=== PATIENT | female | born 1985 | race Caucasian/White ===

== ENCOUNTER → 2023-11-15 10:57 | Outpatient (REF) | payer OTHER, SELFPAY | LOC: MRI 3T 10:57 | PROVIDERS: ATTENDING PHYSICIAN Internal Medicine; FAMILY PHYSICIAN Family Medicine | DX: K52.9 Noninfective gastroenteritis and colitis, unspecified (principal); R10.9 Unspecified abdominal pain | CPT/HCPCS: 72197; 74183; A9575 ==

== ENCOUNTER → 2024-01-26 06:26 | Day surgery (SDC) | payer OTHER, SELFPAY | LOC: GI 06:26 | PROVIDERS: ATTENDING PHYSICIAN Internal Medicine | DX: K44.9 Diaphragmatic hernia without obstruction or gangrene (principal); R12 Heartburn | CPT/HCPCS: 43239; 88305; 88342 ==

== ENCOUNTER → 2024-12-08 10:54 | Outpatient (REF) | payer OTHER, SELFPAY | LOC: MRI 3T 10:54 | PROVIDERS: ATTENDING PHYSICIAN Physician Assistant | DX: G89.29 Other chronic pain (principal); R51.9 Headache, unspecified; J01.10 Acute frontal sinusitis, unspecified | CPT/HCPCS: 70553; A9575 ==

== ENCOUNTER 2025-05-29 15:39 | Emergency (ER) | payer OTHER, SELFPAY ==
[2025-05-29 16:08] LABS: Hematocrit 37.1 % (37.0-47.0); Hemoglobin 12.4 g/dL (12.0-16.0); Mean Corp Hgb Conc. 33.4 g/dL (33.0-37.0); Mean Corpuscular Volume 82.4 fL (81.0-99.0); Nucleated Red Blood Cells % 0 %; Platelet Count 291 10^3/uL (130-400); Red Cell Dist. Width 13.4 % (11.5-14.5)
[2025-05-29 16:21] LABS: ALT (SGPT) 15 U/L (0-35); AST (SGOT) 18 U/L (14-36); Albumin 4.6 g/dl (3.5-5.0); Alkaline Phosphatase 44 U/L (38-126); Blood Urea Nitrogen 14 mg/dl (7-17); Calcium 9.5 mg/dl (8.4-10.2); Carbon Dioxide 26 mmol/L (22-30); Chloride 106 mmol/L (98-107); Glucose 119 mg/dl (70-99); HCG, Serum Qualitative Screen Negative; Potassium 4.6 mmol/L (3.5-5.1); Sodium 139 mmol/L (135-145); Total Protein 7.8 g/dl (6.3-8.2); eGFR > 60.00
[2025-05-29 16:22] LABS: Urine Character Clear (Clear)
--- NOTE | 2025-05-29 18:20 | ED.GENMED ---
History of Present Illness
General
Chief Complaint: Flank Pain
Source: patient
Exam Limitations: none
Time Seen by Provider: 05/29/25 18:10
Nursing documentation reviewed up to this point in time: agreed with
History of Present Illness
History of Present Illness:
39-year-old female with history of abdominal and incisional hernia repair in 2022, 3 C-sections, ovarian cyst removal presents for left lower back pain and some left abdominal pain. She she has been on Wegovy since February. About a month ago she had
some diarrhea associated with taking the Wegovy and that is when her back pain started. She states the pain is always there at a minimal level but it waxes and wanes and gets worse several times during the day with more frequent exacerbations over
over the past couple of weeks. She saw her PCP and was ordered an ultrasound of her kidneys which she has not had done yet. She has had mild intermittent nausea, no vomiting. Denies fever or chills. Has been moving her bowels regularly. Denies
UTI symptoms.
Past History
Past History
ED Past Medical History: None; Negative Asthma, HTN, Hypercholesterolemia or NIDDM
ED Past Surgical History: (X 3), Gynecological (ovarian cyst removed) and Other (hernia repair)
Social History
Tobacco: Non-smoker
Alcohol: Occasional
Personal:
Living: with family
Employment: Employed
Review of Systems
Review of Systems
Allergies reviewed?: Yes
All Other Systems: ROS reviewed and negative except as documented in HPI and ROS
Phy Exam
Physical Exam
Physical Exam:
GENERAL: No acute distress. A&Ox3.
CONSTITUTIONAL: Afebrile.
EYES: clear, conjunctivae normal
ENMT: moist mucus membranes
RESPIRATORY: Regular respirations, nonlabored, lungs clear.
CARDIOVASCULAR: Regular rate and rhythm, no murmurs, no rubs.
GI: Soft, tender to palpate left abdomen, no guarding, normal BS
MUSCULOSKELETAL: Moves with ease. Well perfused.
SKIN: Warm, dry, pink
PSYCH: Normal mood and affect. Well kept, interactive and appropriate
NEUROLOGIC: Awake, alert and oriented. No focal neurological deficits
Course
Orders/Labs/Results
Orders:
Orders
05/29/25 15:46
Test Result ONCE
05/29/25 15:54
Complete Blood Count/With Diff Urgent
Comprehensive Metabolic Panel Urgent
HCG, Serum Qualitative Screen Urgent
Lipase Urgent
Comment: ADDON
Urinalysis Reflex To Culture Urgent
Date Specimen was Collected: 05/29/25
Time Specimen was Collected: 15:46
05/29/25 18:20
Add On- LAB Urgent
Tests Added?: Lipase
05/29/25 18:57
CT Abd/pelvis W Iv Cont Urgent
Comment:
Reason For Exam: L flank and abdominal pain
Abnormal Lab Results
05/29/25
15:54
WBC 11.1 H 10^3/uL
(4.8-10.8)
Absolute Neuts (auto) 7.0 H 10^3/uL
(1.4-6.5)
Absolute Monos (auto) 0.8 H 10^3/uL
(0.1-0.6)
Glucose 119 H mg/dl
(70-99)
05/29/25 15:54
05/29/25 15:54
Vital Signs
Initial and Last Documented VS:
Initial Vital Signs
Temp Pulse Resp Pulse Ox
98.5 F 104 17 95
05/29/25 15:44 05/29/25 15:44 05/29/25 15:44 05/29/25 15:44
Last Documented Vital Signs
Temp Pulse Resp BP Pulse Ox
98.5 F 72 17 118/73 98
05/29/25 15:44 05/29/25 19:00 05/29/25 20:00 05/29/25 19:00 05/29/25 19:00
MDM/Problems Addressed
Differential Diagnosis Includes:
Kidney stone, UTI, diverticulitis, pancreatitis, constipation, musculoskeletal pain
MDM/Problems Addressed:
39-year-old female with history of abdominal and incisional hernia repair in 2022, 3 C-sections, ovarian cyst removal presents for left lower back pain and some left abdominal pain. She she has been on Wegovy since February. About a month ago she had
some diarrhea associated with taking the Wegovy and that is when her back pain started. She states the pain is always there at a minimal level but it waxes and wanes and gets worse several times during the day with more frequent exacerbations over
over the past couple of weeks. She saw her PCP and was ordered an ultrasound of her kidneys which she has not had done yet. She has had mild intermittent nausea, no vomiting. Denies fever or chills. Has been moving her bowels regularly. Denies
UTI symptoms.
Afebrile, NAD
CBC normal
CMP normal
HCG neg
U/A neg
8:00 PM:
CT abdomen pelvis with IV contrast: Radiology report read: No acute pathology of the abdomen.
*Pulse Oximetry
SaO2: 95
Oxygen Mode of Delivery: Room air
Patient hypoxic: not evaluated
*Critical Care Note
Total Time (30-74mins, 75-104mins- exclusive of procedures): Not Applicable
ED Attending Note
-
Portions of this chart may have been created with voice recognition software.� Occasional wrong word or��sound alike� substitutions may have occurred due to the inherent limitations of voice recognition software.
Discharge Plan
Departure
Patient Disposition: Home (Routine Discharge)
Date of Disposition: 05/29/25
Time of Disposition: 20:11
Patient with high blood pressure during this ER visit?: No
Condition: Good
Discharge Problem:
Low back pain
Instructions: Low back pain in adults, Musculoskeletal Pain
Prescriptions:
No Action
Nutrafol
4 cap PO DAILY
Referrals:
Hamida Smith MD [Family Provider, Internal Medicine] - As needed
Activity Restrictions/Additional Instructions:
As we discussed, nothing worrisome in your workup here today. Ibuprofen 600 mg, with food, every 6 hours as needed for pain.
Interventions
Interventions:
*Risk Screen - Suicide Last Done: 05/29/25 15:45
*General Assessment Last Done: 05/29/25 15:45
*Neglect/Abuse Screening Last Done: 05/29/25 15:45
*ED- Fall Risk Assessment Last Done: 05/29/25 19:26
*ED COVID-19 Vaccine History Last Done: 05/29/25 15:45
*Nursing Disposition Last Done: 05/29/25 20:37
OH-Lrtrie-Phicmkjgbu Assessment Last Done: 05/29/25 19:24
ED-Female Genitourinary Assessment Last Done: 05/29/25 19:24
Discharge Date and Time
Discharge Date/Time: 05/29/25 20:38
Print Language: BELGIAN
[2025-05-29 19:00] VITALS: BP 118/73
[2025-05-29 19:02] LABS: Lipase 191 U/L (23-300)
== END 2025-05-29 20:38 | disposition home or self-care (01) ==
LOC: EMR 15:39
PROVIDERS: Emergency Medicine; EMERGENCY PHYSICIAN Emergency Medicine; FAMILY PHYSICIAN Internal Medicine
DX: M54.50 Low back pain, unspecified (principal); R10.9 Unspecified abdominal pain; Z79.899 Other long term (current) drug therapy
CPT/HCPCS: 99284; 74177; 80053; 81003; 83690; 84703; 85025; Q9967